=== PATIENT | female | born 1960 | race African-American/Black ===

== ENCOUNTER 2016-12-07 09:17 | Day surgery (SDC) | payer MEDICAID ==
[~2016-12-07] VITALS: Ht 160 cm; Wt 126.6 kg
[2016-12-07] MEDS ORDERED: LACTATED RINGERS 1,000 ML IV SCH (10:20)
[2016-12-07] MEDS ORDERED: BALANCED SALT IRRIG SOLN COMB1 500ML OP NR (11:00)
[2016-12-07] MEDS ORDERED: LIDOCAINE HCL 2%/EPINEPHRINE 1:100,000 20 ML VIAL INFIL ONE (12:12)
[2016-12-07] MEDS ORDERED: PREDNISOLONE ACETATE 1% OPHTH DROPS 1ML ONE (12:12)
[2016-12-07] MEDS ORDERED: NEO/POLYMYX B SULF/DEXAMETH OPHTH OINT 3.5GM ONE (12:12)
[2016-12-07] MEDS ORDERED: CIPROFLOXACIN 0.3% OPHTH SOLN 2.5ML ONE (12:12)
[2016-12-07] MEDS ORDERED: BALANCED SALT IRRIG SOLN 15ML ONE (12:12)
[2016-12-07] MEDS ORDERED: ACETYLCHOLINE CHLORIDE INTRAOCULAR SOLUTION 1:100 ELECTROLYTE DILUENT IO ONE (12:12)
[2016-12-07] MEDS ORDERED: TETRACAINE 0.5% OPHTH DROPS 4ML ONE (12:12)
[2016-12-07] MEDS ORDERED: BUPIVACAINE HCL/PF 0.75% (7.5MG/ML) 10ML ONE (12:12)
[2016-12-07] MEDS ORDERED: LIDOCAINE HCL/PF 2% 20 MG/ML 10ML VIAL ONE (12:12)
[2016-12-07] MEDS ORDERED: PROPOFOL 200MG/20ML VIAL IV ONE (12:40)
[2016-12-07] MEDS ORDERED: LIDOCAINE HCL 1% 20ML VIAL (Pyxis) INJ ONE (12:40)
[2016-12-07] MEDS ORDERED: FENTANYL CITRATE/PF 50MCG/ML 2ML VIAL ONE (12:41)
[2016-12-07] MEDS ORDERED: ONDANSETRON HCL 4MG/2ML VIAL ONE (12:41)
[2016-12-07] MEDS ORDERED: ALBU18HF2 IH (12:53)
[2016-12-07] MEDS ORDERED: P-EP-312 PO (12:53)
[2016-12-07] MEDS ORDERED: BECL10PO MC (12:53)
[2016-12-07] MEDS ORDERED: ONDANSETRON HCL 4MG/2ML VIAL IV PRN (13:00)
[2016-12-07] MEDS ORDERED: HYDROMORPHONE HCL/PF 2MG/ML CPJ IV PRN (13:00)
[2016-12-07] MEDS ORDERED: MEPERIDINE HCL/PF 25MG/ML CPJ IV PRN (13:00)
[2016-12-07] MEDS ORDERED: LABETALOL HCL 20MG/4ML CARPUJECT IV PRN (13:00)
== END 2016-12-07 15:05 ==
LOC: OR 09:17
PROVIDERS: ATTEND Ophthalmology
DX: H02.829 Cysts of unspecified eye, unspecified eyelid (principal); J45.909 Unspecified asthma, uncomplicated; E66.01 Morbid (severe) obesity due to excess calories; Z98.890 Other specified postprocedural states; J45.998 Other asthma; Z91.040 Latex allergy status; Z88.0 Allergy status to penicillin; Z91.018 Allergy to other foods
CPT/HCPCS: 11441; J2405; J3010; J3490; J7120; J2704